=== PATIENT | male | born 1950 | race Caucasian/White ===

== ENCOUNTER 2024-07-30 00:47 | Emergency (ER) | payer MEDICARE, OTHER ==
[~2024-07-30] VITALS: Ht 175.3 cm; Wt 99.8 kg
[2024-07-30] MEDS ORDERED: METO-356 (00:58)
[2024-07-30] MEDS ORDERED: lipitor (00:58)
[2024-07-30] MEDS ORDERED: lyrica (00:58)
[2024-07-30] MEDS ORDERED: AMIO200T6 (00:58)
[2024-07-30] MEDS ORDERED: cymbalta (00:58)
[2024-07-30] MEDS ORDERED: flomax (00:58)
[2024-07-30] MEDS ORDERED: APIX5TAB4 (00:58)
[2024-07-30] MEDS ORDERED: digoxin (00:58)
[2024-07-30 02:20] LABS: ALANINE AMINOTRANSFERASE 26 U/L (16-63); ALBUMIN 4.3 g/dL (3.4-5.0); ALKALINE PHOSPHATASE 60 U/L (50-136); ASPARTATE AMINOTRANSFERASE 11 U/L (15-37); CALCIUM 8.7 mg/dL (8.5-10.1); CARBON DIOXIDE 30 mmol/L (21-32); CHLORIDE 104 mmol/L (98-107); CREATININE 1.6 mg/dL (0.6-1.3); GLUCOSE 133 mg/dL (74-106); NT-PRO BNP 429 pg/mL (0-125); POTASSIUM 4.2 mmol/L (3.5-5.1); SODIUM SERUM 141 mmol/L (136-145); TOTAL PROTEIN, SERUM 7.5 g/dL (6.4-8.2); UREA NITROGEN, BLOOD 27 mg/dL (7-18)
[2024-07-30] MEDS ORDERED: HYDROCODONE/APAP 10-325 MG TABLET ONE (02:23)
[2024-07-30] MEDS: HYDROCODONE/APAP 10-325 MG TABLET PO ONE (02:26)
[2024-07-30 02:40] LABS: BASOPHILS # (AUTO) 0.1 K/UL (0.0-0.2); BASOPHILS % (AUTO) 1.3 % (0.0-2.0); EOSINOPHILS # (AUTO) 0.2 K/uL (0.0-0.7); EOSINOPHILS % (AUTO) 2.3 % (0.0-7.0); HEMATOCRIT 34.8 % (36.7-47.1); HEMOGLOBIN 12.1 g/dL (12.5-16.3); LYMPHOCYTES # (AUTO) 1.7 K/uL (0.8-4.8); LYMPHOCYTES % (AUTO) 16.6 % (20.5-51.5); MEAN CORPUSCULAR HEMOGLOBIN 34.2 uug (23.8-33.4); MEAN CORPUSCULAR HGB CONC 35 g/dL (32.5-36.3); MEAN CORPUSCULAR VOLUME 98.9 fL (73.0-96.2); MONOCYTES # (AUTO) 0.7 K/uL (0.1-1.30); MONOCYTES % (AUTO) 6.8 % (0.0-11.0); NEUTROPHILS # (AUTO) 7.5 K/uL (1.8-8.9); PLATELET COUNT (AUTO) 306 K/uL (152-348); RED BLOOD CELL COUNT(AUTO) 3.52 MIL/uL (4.06-5.63); RED CELL DISTRIBUTION WIDTH 18.7 % (12.1-16.2); WHITE BLOOD COUNT (AUTO) 10.3 K/uL (3.6-10.2)
[2024-07-30 02:46] LABS: DIFFERENTIAL COMMENT 1
[2024-07-30 11:30] VITALS: BP 141/79; O2SAT 98
== END 2024-07-30 11:33 | disposition home or self-care (01) ==
LOC: ER 00:52
DX: I11.9 Hypertensive heart disease without heart failure (principal); I48.91 Unspecified atrial fibrillation; R51.9 Headache, unspecified; F17.200 Nicotine dependence, unspecified, uncomplicated; Z95.0 Presence of cardiac pacemaker; Z88.2 Allergy status to sulfonamides
CPT/HCPCS: 36415; 70450; 84484; 85025; 85610; A4606; A4663